=== PATIENT | male | born 1990 | race Caucasian/White ===

== ENCOUNTER 2020-02-12 19:22 | Emergency (ER) | payer SELFPAY ==
--- NOTE | 2020-02-12 20:15 | CR ---
Right elbow: 3 views of the right elbow were obtained. Comparison: No previous study. Small supracondylar process is seen above the elbow which is felt to be a normal developmental anomaly. Joint spaces are preserved. No acute fracture, dislocation or other bony abnormality is appreciated. Impression: 1. Supracondylar process. 2. Nothing acute is seen on right elbow study. Diagnostic code #2 This report was dictated in MDT
--- NOTE | 2020-02-12 20:21 | EDM.PDOC ---
ED HPI GENERAL MEDICAL PROBLEM - General Chief Complaint: Upper Extremity Injury/Pain Stated Complaint: FELL AT WORK Time Seen by Provider: 02/12/20 19:52 Source of Information: Reports: Patient, RN Notes Reviewed History Limitations: Reports: No Limitations - History of Present Illness INITIAL COMMENTS - FREE TEXT/NARRATIVE: Patient is a 29-year-old male who presents to the ED for evaluation of a right elbow injury. Patient states he was working, walking [place] when it gave way, and he fell what he thinks is about 4 feet to the ground onto some concrete forms, he states that he hit his right elbow on these forms. He states he is having some mild tingling to the fingers however he still move his fingers in all range of motion, he states he is having difficulty supinating his arm, he can get about half range of motion for supination, pronation is intact. Patient is right-hand dominant. Patient did take 2 Aleve for pain management and 3 shots of alcohol before coming to the ER for evaluation. Patient denies any other sick-like symptoms. He denies any pain in his wrist, or up into his shoulder. Right Elbow Pain Score (Numeric/FACES): 8 - Related Data Allergies Allergy/AdvReac Type Severity Reaction Status Date / Time acetaminophen [From Percocet] Allergy Itching Verified 02/12/20 19:34 oxycodone [From Percocet] Allergy Itching Verified 02/12/20 19:34 marijuana Allergy Anaphylactic Uncoded 03/08/14 00:15 CDT Shock Home Meds: Home Meds . [No Known Home Meds] 03/08/14 [History] Past Medical History Musculoskeletal History: Reports: Fracture - Past Surgical History GI Surgical History: Reports: Appendectomy, Cholecystectomy Musculoskeletal Surgical History: Reports: ORIF Social & Family History - Tobacco Use Smoking Status *Q: Current Every Day Smoker Years of Tobacco use: 15 Packs/Tins Daily: 1 - Alcohol Use Days Per Week of Alcohol Use: 7 Number of Drinks Per Day: 2 Total Drinks Per Week: 14 - Recreational Drug Use Recreational Drug Use: Yes Drug Use in Last 12 Months: No Recreational Drug Type: Reports: Cocaine, Methamphetamine Recreational Drug Use Frequency: Not Used In Over 2 Months Review of Systems - Review of Systems Review Of Systems: Comprehensive ROS is negative, except as noted in HPI. ED EXAM, GENERAL - Physical Exam Exam: See Below Exam Limited By: No Limitations General Appearance: Alert, WD/WN, No Apparent Distress Throat/Mouth: Normal Inspection Head: Atraumatic, Normocephalic Neck: Normal Inspection Respiratory/Chest: No Respiratory Distress, Lungs Clear, Normal Breath Sounds, No Accessory Muscle Use, Chest Non-Tender Cardiovascular: Normal Peripheral Pulses, Regular Rate, Rhythm, No Murmur Peripheral Pulses: 3+: Radial (L), Radial (R) GI/Abdominal: Normal Bowel Sounds, Soft, Non-Tender, No Distention, No Mass Extremities: Normal Inspection, Normal Capillary Refill, Arm Pain (R proximal forearm/distal humerus), Limited Range of Motion (of right forearm d/t pain, has about 50% ROM regarding supination, pronation intact, mild anthropologist physical strength disparity; pt state this is d/t pain in elbow.). No: Joint Swelling Neurological: Alert, Oriented, Normal Cognition, No Motor/Sensory Deficits Psychiatric: Normal Affect, Normal Mood Skin Exam: Warm, Dry, Intact, Normal Color, No Rash Course - Vital Signs Last Recorded V/S: Last Vital Signs Temp 97.7 F 02/12/20 19:34 Pulse 84 02/12/20 19:34 Resp 18 02/12/20 19:34 BP 129/82 02/12/20 19:34 Pulse Ox 96 02/12/20 19:34 - Re-Assessments/Exams Free Text/Narrative Re-Assessment/Exam: 02/12/20 20:20 Patient presents to the ED for evaluation of his right arm injury. X-rays were obtained at time of triage, demonstrates no acute fracture, there is a supracondylar process, but radiology feels that this is a normal anatomic variant, and should not be complicating today's visit. At this time patient will be discharged home with general recommendations, and to follow-up with orthopedics in 10 days to 2 weeks if everything does not seem to be getting better. Departure - Departure Time of Disposition: 20:21 Disposition: Home, Self-Care 01 Condition: Good Clinical Impression: Injury of right elbow Qualifiers: Encounter type: initial encounter Qualified Code(s): S59.901A - Unspecified injury of right elbow, initial encounter - Discharge Information *PRESCRIPTION DRUG MONITORING PROGRAM REVIEWED*: No *COPY OF PRESCRIPTION DRUG MONITORING REPORT IN PATIENT JOSELITO: No Referrals: PCP,None [Primary Care Provider] - Additional Instructions: You have been evaluated in the ED for your right elbow injury. Your x-ray demonstrated no acute fracture or other bony abnormality. Please use ice/heat as tolerated to the affected area. Please try to elevate the affected area to relieve swelling. You may take Tylenol 500 mg or ibuprofen 600mg q6 hrs for pain relief. Please do so until you have a tolerable level of pain with activity. Do not exceed 4000mg Tylenol or 3200mg ibuprofen in a 24 hour time period. If you are still having difficulties moving your arm in 10 days to 2 weeks, recommend you follow-up with another provider to have your elbow re-imaged to make sure there is no occult fracture that was not made apparent at today's visit. Again there is no acute fracture or obvious abnormality appreciated at today's visit. Please return to ED if your symptoms should change or worsen. Sepsis Event Note - Evaluation Sepsis Screening Result: No Definite Risk - Focused Exam Vital Signs: Vital Signs Temp Pulse Resp BP Pulse Ox 02/12/20 19:34 97.7 F 84 18 129/82 96 Date Exam was Performed: 02/12/20 Time Exam was Performed: 20:16
== END 2020-02-12 20:45 | disposition home or self-care (01) ==
LOC: JD.ED 19:22
DX: S59.901A Unspecified injury of right elbow, initial encounter (principal); F17.210 Nicotine dependence, cigarettes, uncomplicated; Z88.8 Allergy status to other drugs, medicaments and biological substances; Z88.5 Allergy status to narcotic agent; W01.10XA Fall on same level from slipping, tripping and stumbling with subsequent striking against unspecified object, initial encounter
CPT/HCPCS: 73080-26-RT; 73080-RT; 99282; 99283-25

== ENCOUNTER 2020-12-07 18:49 | Emergency (ER) | payer SELFPAY ==
[2020-12-07] MEDS ORDERED: ceFAZolin 1 GM Vial IM ONE (20:20)
[2020-12-07] MEDS ORDERED: Sulfamethoxazole/Trimethoprim 800-160 MG Tab PO ONE (20:24)
[2020-12-07] MEDS ORDERED: Lidocaine 1% 4 ML ONE (20:27)
--- NOTE | 2020-12-07 20:30 | EDM.PDOC ---
ED HPI GENERAL MEDICAL PROBLEM - General Chief Complaint: Laceration Stated Complaint: FINGER LAC Time Seen by Provider: 12/07/20 19:06 Source of Information: Reports: Patient History Limitations: Reports: No Limitations - History of Present Illness INITIAL COMMENTS - FREE TEXT/NARRATIVE: Patient is coming in with a laceration of his left index finger. This happened a short while prior to arrival. Apparently the wind caused a door to close on his finger causing something of a crush injury. The injury is to the distal phalanx of his index finger. Patient is not taken any medication or tried any other measure to moderate symptoms. He came directly to the emergency department. There are no risk factors of any consequence than cigarette smoking. Left Finger-Index Pain Score (Numeric/FACES): 6 - Related Data Allergies Allergy/AdvReac Type Severity Reaction Status Date / Time acetaminophen [From Percocet] Allergy Itching Verified 12/07/20 19:03 oxycodone [From Percocet] Allergy Itching Verified 12/07/20 19:03 marijuana Allergy Anaphylactic Uncoded 12/07/20 19:03 Shock Home Meds: Home Meds Sulfamethoxazole/Trimethoprim [Bactrim Ds Tablet] 1 each PO BID #20 tablet 12/07/20 [Rx] cephALEXin [Keflex] 500 mg PO Q8H #30 cap 12/07/20 [Rx] Past Medical History Musculoskeletal History: Reports: Fracture - Past Surgical History GI Surgical History: Reports: Appendectomy, Cholecystectomy Musculoskeletal Surgical History: Reports: ORIF Social & Family History - Tobacco Use Tobacco Use Status *Q: Current Every Day Tobacco User Years of Tobacco use: 15 Packs/Tins Daily: 1 - Caffeine Use Caffeine Use: Reports: Energy Drinks - Recreational Drug Use Recreational Drug Use: No ED ROS GENERAL - Review of Systems Review Of Systems: Comprehensive ROS is negative, except as noted in HPI. ED EXAM, SKIN/RASH Exam: See Below Text/Narrative:: Patient is alert and in no distress. He is lying comfortably on the gurney with his left hand in antibacterial solution. Head normocephalic atraumatic. PERRLA EOMI. Neck is supple without jugular venous distention. Lungs are clear. Heart is regular. Abdomen is soft and nontender. No flank tenderness. No peripheral edema cyanosis or clubbing. Neurologically intact with fluent speech and symmetrical gait. No sensory or motor deficits. Examination of the index finger of the left hand, there is a superficial laceration which crosses the cuticle posterior laterally and curves around the lateral aspect extending about 1.7 cm. He is neurovascular tendon intact. The nail is a bit blanched but is in place, not dislodged, and no injury to the nailbed is suspected. ED SKIN PROCEDURES - Laceration/Wound Repair Foot Appearance: Superficial Distal NVT: Neuro & Vascular Intact, No Tendon Injury Anesthetic Type: Local Local Anesthesia - Lidocaine (Xylocaine): 1% Plain Local Anesthetic Volume: 2cc Skin Prep: Chlorhexidine (Hibiciens), Saline Exploration/Debridement/Repair: Wound Explored, Minimally Undermined, No Foreign Material Found Closed with: Sutures Lac/Wound length In cm: 1.7 Suture Size: 5-0 # of Sutures: 4 Suture Type: Nylon, Interrupted, Simple Sterile Dressing Applied: Nurse Tetanus Status Addressed: Yes Complications: No Course - Vital Signs Text/Narrative:: As above, x-ray of the digit does not show any fracture or dislocation. Repair as noted above. Patient tolerated well no complications. Ancef 1 g IM and 1 Bactrim DS in emergency department. Will be discharged on Keflex and Bactrim for 10 days. Strict precautions for return to ER. Wound care instructions given. Last Recorded V/S: Last Vital Signs Temp 36.6 C 12/07/20 19:00 Pulse 82 12/07/20 19:00 Resp 18 12/07/20 19:00 BP 131/85 12/07/20 19:00 Pulse Ox 97 12/07/20 19:00 - Orders/Labs/Meds Orders: Active Orders 24 hr Category Date Time Status Fingers Second Digit Lt F1 [CR] Stat Exams 12/07/20 19:10 Taken Sulfamethoxazole/Trimethoprim [Septra DS] Med 12/07/20 20:24 Once 1 tab PO ONETIME ONE Meds: Medications Discontinued Medications Generic Name Dose Route Start Last Admin Trade Name Freq PRN Reason Stop Dose Admin Cefazolin Sodium 1 gm 12/07/20 20:20 Cefazolin 1 Gm Vial IM 12/07/20 20:21 ONETIME ONE Departure - Departure Time of Disposition: 20:35 Disposition: Home, Self-Care 01 Condition: Good Clinical Impression: Finger laceration Qualifiers: Encounter type: initial encounter Finger: index finger Damage to nail status: unspecified Foreign body presence: without foreign body Laterality: left Qualified Code(s): S61.211A - Laceration without foreign body of left index finger without damage to nail, initial encounter - Discharge Information Prescriptions: Sulfamethoxazole/Trimethoprim [Bactrim Ds Tablet] 1 each PO BID #20 tablet cephALEXin [Keflex] 500 mg PO Q8H #30 cap Referrals: PCP,None [Primary Care Provider] - Additional Instructions: You have been seen for a laceration and something of a crush injury to your left index finger. You were sutured and there are 4 nylon sutures placed. Keep the site dressed and protect the wound. A dry dressing on a daily basis is just fine. After 24 hours you can gently remove any debris from the suture area. You have been prescribed 2 antibiotics to cover any potential infection in the area. There should not be much pain associated with this injury. If there is pain, redness, swelling, fever or any concern at all please return to the emergency department immediately. Sutures may be removed in about 10 days. As there appears to be some mild crushing of the fingertip you may lose the fingernail. Protect it and keep it in place as long as possible as if this is the case a new nail will be growing and underneath the old one. The old nail will protect the nailbed. Sepsis Event Note (ED) - Evaluation Sepsis Screening Result: No Definite Risk - Focused Exam Vital Signs: Vital Signs Temp Pulse Resp BP Pulse Ox 12/07/20 19:00 36.6 C 82 18 131/85 97 - My Orders Last 24 Hours: My Active Orders 12/07/20 19:10 Fingers Second Digit Lt F1 [CR] Stat 12/07/20 20:24 Sulfamethoxazole/Trimethoprim [Septra DS] 1 tab PO ONETIME ONE - Assessment/Plan Last 24 Hours: My Active Orders 12/07/20 19:10 Fingers Second Digit Lt F1 [CR] Stat 12/07/20 20:24 Sulfamethoxazole/Trimethoprim [Septra DS] 1 tab PO ONETIME ONE
[2020-12-07] MEDS ORDERED: Lidocaine 1% 10 ML MDV INJECT ONE (20:57)
--- NOTE | 2020-12-08 09:14 | CR ---
Left second finger: 4 views centered to the left second finger were obtained. Comparison: No prior second finger or hand exam. Slight soft tissue injury is seen distally. Joint spaces are maintained. No acute fracture, dislocation or other bony abnormality is appreciated. Impression: 1. Soft tissue injury. 2. No acute bony abnormality is appreciated. Diagnostic code #2
== END 2020-12-07 20:55 | disposition home or self-care (01) ==
LOC: JD.ED 18:49
DX: S61.211A Laceration without foreign body of left index finger without damage to nail, initial encounter (principal); F17.210 Nicotine dependence, cigarettes, uncomplicated; Z88.6 Allergy status to analgesic agent; Z88.5 Allergy status to narcotic agent; Z88.8 Allergy status to other drugs, medicaments and biological substances; W23.0XXA Caught, crushed, jammed, or pinched between moving objects, initial encounter
CPT/HCPCS: 12001; 73140; 96372; 99283; A9270; J0690

== ENCOUNTER 2022-02-24 21:38 | Emergency (ER) | payer OTHER ==
[2022-02-24] MEDS ORDERED: HYDROmorphone 0.5 MG/0.5 ML Syringe IVPUSH ONE (22:39)
[2022-02-24] MEDS ORDERED: Ondansetron 4 MG/2 ML SDV IVPUSH ONE (22:39)
[2022-02-24] MEDS ORDERED: Sodium Chloride 0.9% 1,000 ML IV SCH (22:45)
[2022-02-24] MEDS ORDERED: Iopamidol 612 MG/ML 100 ML Bottle IVPUSH ONE (23:05)
[2022-02-24] MEDS ORDERED: Sodium Chloride 0.9% 10 ML Syringe FLUSH PRN (23:05)
[2022-02-24 23:26] LABS: ESTIMATED GFR 75 mL/min (>60)
== END 2022-02-25 02:00 | disposition home or self-care (01) ==
LOC: JD.ED 21:38
DX: R10.12 Left upper quadrant pain (principal); R10.84 Generalized abdominal pain; F17.210 Nicotine dependence, cigarettes, uncomplicated; Z88.5 Allergy status to narcotic agent; Z88.8 Allergy status to other drugs, medicaments and biological substances; Z86.16 Personal history of COVID-19
CPT/HCPCS: 36415; 74177; 80053; 80179; 83690; 83735; 85025; 85610; 85730; 96361; 96374; 96375; 99284; J1170; J2405; J3490; J7030; Q9967

== ENCOUNTER 2023-06-12 11:30 | Emergency (ER) | payer SELFPAY ==
[2023-06-12 12:44] LABS: BASOPHILS ABSOLUTE AUTO 0.1 K/mm3 (0.0-0.2); BASOPHILS PERCENT AUTO 1.1 % (0.0-1.0); EOSINOPHILS ABSOLUTE AUTO 0.3 K/mm3 (0.0-0.4); EOSINOPHILS PERCENT AUTO 5.7 % (0.0-6.0); HEMOGLOBIN 16.7 gm/dl (14.0-18.0); IMMATURE GRAN ABSOLUTE AUTO 0.02 K/mm3 (0.00-0.05); IMMATURE GRAN PERCENT AUTO 0.4 % (0.0-0.4); LYMPHOCYTES ABSOLUTE AUTO 1.6 K/mm3 (1.0-4.8); LYMPHOCYTES PERCENT AUTO 28.9 % (24.0-44.0); MEAN CORPUSCULAR HEMOGLOBIN 32.2 pg (28.0-32.0); MEAN CORPUSCULAR HGB CONC 36.3 g/dl (32.0-36.0); MEAN CORPUSCULAR VOLUME 88.8 fl (83.0-99.0); MEAN PLATELET VOLUME 9.7 fl (9.4-12.4); MONOCYTES ABSOLUTE AUTO 0.5 K/mm3 (0.0-0.8); MONOCYTES PERCENT AUTO 8.8 % (0.0-8.0); NEUTROPHILS ABSOLUTE AUTO 3.1 K/mm3 (1.8-7.7); NEUTROPHILS PERCENT AUTO 55.1 % (41.0-71.0); PLATELET COUNT,PLT 302 K/mm3 (150-400); RED BLOOD CELL COUNT 5.18 M/mm3 (4.52-5.90); WHITE BLOOD CELL COUNT,WBC 5.57 K/mm3 (3.9-11.3)
[2023-06-12 13:17] LABS: A/G RATIO 1.1 (1-2); ANION GAP 15.3 (5-15); BILIRUBIN TOTAL 0.7 mg/dL (0.2-1.0); BUN/CREATININE RATIO 15.5 (14-18); CALCIUM 8.8 mg/dL (8.5-10.1); CREATININE 1.1 mg/dL (0.7-1.3); EST CRCL DRUG DOSING (CG) 101.73 mL/min; ETHANOL BLOOD MEDICAL 0.07 gm% (0.00); POTASSIUM,K 4.3 mEq/L (3.5-5.1); PROTEIN TOTAL,TP 7.6 g/dl (6.4-8.2); TSH 1.984 uIU/mL (0.358-3.74)
[2023-06-12] MEDS ORDERED: LORazepam 2 MG/ML SDV IM ONE (15:01)
[2023-06-12 15:12] LABS: BARBITURATE SCREEN,URINE NEGATIVE (CUTOFF=200); BENZODIAZEPINES SCREEN,URINE NEGATIVE (CUTOFF=150); BUPRENORPHINE SCREEN,URINE NEGATIVE (CUTOFF=10); METHADONE SCREEN, URINE NEGATIVE (CUT0FF=200); METHAMPHETAMINES SCREEN, URINE NEGATIVE (CUTOFF=500); OXYCODONE SCREEN,URINE NEGATIVE (CUT0FF=100); PROPOXYPHENE SCREEN,URINE NEGATIVE (CUTOFF=300); THC SCREEN,URINE 20 NG/ML NEGATIVE (CUTOFF=50)
[2023-06-12 15:16] LABS: AMPHETAMINES SCREEN, URINE NEGATIVE (CUTOFF=500)
== END 2023-06-12 15:16 | disposition home or self-care (01) ==
LOC: JD.ED 11:30
DX: F31.9 Bipolar disorder, unspecified (principal); F41.9 Anxiety disorder, unspecified; K21.9 Gastro-esophageal reflux disease without esophagitis; F17.210 Nicotine dependence, cigarettes, uncomplicated; Z88.8 Allergy status to other drugs, medicaments and biological substances; Z79.899 Other long term (current) drug therapy
CPT/HCPCS: 36415; 80053; 80143; 80179; 80306; 80307; 84443; 85025; 93005; 96372; 99284; J2060; 93010